=== PATIENT | female | born 1995 | race Caucasian/White ===

== ENCOUNTER 2018-03-05 20:14 | Inpatient (IN) | payer BC ==
[~2018-03-05] VITALS: Ht 167.6 cm; Wt 65.3 kg
[2018-03-05] MEDS ORDERED: IV NS 0.9% 1,000 ML BAG IV ONE (20:30)
[2018-03-05] MEDS ORDERED: LORAZEPAM INJ 2 MG/ML VIAL IVP ONE (20:30)
[2018-03-05] MEDS ORDERED: LORAZEPAM INJ 2 MG/ML VIAL ONE ×2 (20:33→21:34)
[2018-03-05 20:50] LABS: BASOPHILS % (AUTO) 0.4 % (0.0-2.0); EOSINOPHILS % (AUTO) 0.6 % (0.0-6.0); HEMATOCRIT 40 % (33-45); HEMOGLOBIN 13.6 g/dL (11.5-14.8); LYMPHOCYTES # (AUTO) 3.1 /CMM (0.8-4.8); LYMPHOCYTES % (AUTO) 32.7 % (20.0-44.0); MEAN CORPUSCULAR HGB CONC 34 g/dl (31.0-36.0); MEAN CORPUSCULAR VOLUME 89 fL (82-100); MONOCYTES # (AUTO) 0.7 /CMM (0.1-1.30); MONOCYTES % (AUTO) 7.7 % (2.0-12.0); NEUTROPHILS # (AUTO) 5.5 /CMM (1.8-8.9); NEUTROPHILS % (AUTO) 58.6 % (43.0-81.0); PLATELET COUNT (AUTO) 318 /CMM (150-450); RDW COEFFICIENT OF VARIATION 11.6 (11.5-15.0); RED BLOOD CELL COUNT(AUTO) 4.51 MIL/uL (4.0-5.2); WHITE BLOOD COUNT (AUTO) 9.4 K/uL (4.3-11.0)
[2018-03-05 20:58] LABS: CALCIUM, SERUM 9.4 mg/dL (8.5-10.1); CARBON DIOXIDE 27 mmol/L (21-32); CHLORIDE 105 mmol/L (98-107); GLUCOSE 103 mg/dL (74-106); POTASSIUM 3.6 mmol/L (3.5-5.1); SODIUM SERUM 142 mmol/L (136-145); UREA NITROGEN, BLOOD 15 mg/dL (7-18)
[2018-03-05 21:00] LABS: ALCOHOL, BLOOD < 3 mg/dL (0-0)
[2018-03-05] MEDS ORDERED: LORAZEPAM INJ 2 MG/ML VIAL IV ONE (21:30)
[2018-03-05] MEDS ORDERED: LAMO25TA PO (21:58)
[2018-03-05] MEDS ORDERED: CITA20SO PO (21:59)
[2018-03-05 22:00] VITALS: BP 108/60
[2018-03-05] MEDS ORDERED: MAG HYDROX/AL HYDROX/SIMETH 30 ML UDC PO PRN (22:00)
[2018-03-05] MEDS ORDERED: MORPHINE SULFATE INJ 2 MG/ML DISP.SYRIN IV PRN (22:00)
[2018-03-05] MEDS ORDERED: ZOLPIDEM TARTRATE 5 MG TABLET PO PRN (22:00)
[2018-03-05] MEDS ORDERED: MAGNESIUM HYDROXIDE 30 ML UDC PO PRN (22:00)
[2018-03-05] MEDS ORDERED: Z GUARD REMEDY 2 OZ OINT TP PRN (22:00)
[2018-03-05] MEDS ORDERED: ACETAMINOPHEN 325 MG TABLET PO PRN (22:00)
[2018-03-05] MEDS ORDERED: HYDROCODONE/APAP 5/325MG 1 EACH TABLET PO PRN (22:00)
[2018-03-05] MEDS ORDERED: ONDANSETRON HCL/PF 4 MG/2 ML VIAL IVP PRN (22:00)
[2018-03-05 22:44] VITALS: BP 108/60
[2018-03-05] MEDS: IV NS 0.9% 1,000 ML IV PRN (23:03)
[2018-03-05] MEDS: ENOXAPARIN SODIUM 40 MG/0.4 ML DISP.SYRIN SQ SCH (23:44)
[2018-03-06] VITALS: BP 96/47
[2018-03-06 04:00] VITALS: BP 93/54
[2018-03-06 06:47] LABS: BASOPHILS % (AUTO) 0.4 % (0.0-2.0); EOSINOPHILS % (AUTO) 1.1 % (0.0-6.0); HEMATOCRIT 35 % (33-45); HEMOGLOBIN 11.9 g/dL (11.5-14.8); LYMPHOCYTES % (AUTO) 43.5 % (20.0-44.0); MEAN CORPUSCULAR HGB CONC 34 g/dl (31.0-36.0); MEAN CORPUSCULAR VOLUME 91 fL (82-100); MONOCYTES # (AUTO) 0.7 /CMM (0.1-1.30); MONOCYTES % (AUTO) 9.9 % (2.0-12.0); NEUTROPHILS # (AUTO) 3.1 /CMM (1.8-8.9); NEUTROPHILS % (AUTO) 45.1 % (43.0-81.0); PLATELET COUNT (AUTO) 234 /CMM (150-450); RDW COEFFICIENT OF VARIATION 12.1 (11.5-15.0); RED BLOOD CELL COUNT(AUTO) 3.84 MIL/uL (4.0-5.2); WHITE BLOOD COUNT (AUTO) 6.9 K/uL (4.3-11.0)
[2018-03-06 07:34] LABS: CALCIUM, SERUM 8.2 mg/dL (8.5-10.1); CREATININE 0.8 mg/dL (0.6-1.3); MAGNESIUM 1.8 mg/dL (1.8-2.4); PHOSPHORUS 3.7 mg/dL (2.5-4.9); POTASSIUM 3.8 mmol/L (3.5-5.1)
[2018-03-06 08:00] VITALS: BP 134/56
[2018-03-06] MEDS ORDERED: LORAZEPAM INJ 2 MG/ML VIAL IV STA (09:52)
[2018-03-06] MEDS: LamoTRIgine 25 MG TABLET PO SCH (09:55)
[2018-03-06 12:00] VITALS: BP 113/48
[2018-03-06] MEDS ORDERED: GADODIAMIDE 5 MMOL/10 ML VIAL IJ ONE (15:09)
[2018-03-06] MEDS ORDERED: GADODIAMIDE 2.5 MMOL/5 ML VIAL IJ ONE (15:09)
[2018-03-06] MEDS: IV NS 0.9% 1,000 ML IV PRN (15:41)
[2018-03-06] MEDS: LORAZEPAM INJ 2 MG/ML VIAL IV PRN (15:51)
[2018-03-06 16:00] VITALS: BP 117/72
[2018-03-06 20:00] VITALS: BP 117/76
[2018-03-06] MEDS: ENOXAPARIN SODIUM 40 MG/0.4 ML DISP.SYRIN SQ SCH (21:17)
[2018-03-07] VITALS: BP 99/55
[2018-03-07 04:00] VITALS: BP 110/60
[2018-03-07] MEDS: IV NS 0.9% 1,000 ML IV PRN (06:39)
[2018-03-07 08:00] VITALS: BP 114/63
[2018-03-07] MEDS: LamoTRIgine 25 MG TABLET PO SCH (08:22)
[2018-03-07] MEDS: LORAZEPAM INJ 2 MG/ML VIAL IV PRN (12:10)
== END 2018-03-07 17:05 | disposition home or self-care (01) | DRG 882 ==
LOC: ER 20:20 → TELE1 21:42
PROVIDERS: ADMIT Internal Medicine; ATTEND Internal Medicine
DX: F43.8 Other reactions to severe stress (principal); R25.8 Other abnormal involuntary movements; Z88.2 Allergy status to sulfonamides; F32.9 Major depressive disorder, single episode, unspecified; G40.909 Epilepsy, unspecified, not intractable, without status epilepticus; F12.90 Cannabis use, unspecified, uncomplicated; F41.9 Anxiety disorder, unspecified
CPT/HCPCS: 36415; 70553-TC; 80048-TC; 80305; 82962-TC; 83735-TC; 84100-TC; 84703-TC; 85025-TC; 95819-TC; A4606; G0480; J1650; J2060; J7030; Z7610